=== PATIENT | female | born 1975 | race Caucasian/White ===

== ENCOUNTER 2016-10-13 22:39 | Emergency (ER) | payer OTHER ==
[~2016-10-13] VITALS: Ht 167.6 cm; Wt 64.9 kg
--- NOTE | 2016-10-13 23:01 | ED GI/GU/ABDOMINAL COMPLAINT ---
History of Present Illness General Chief Complaint: Female Urogenital Problems Stated Complaint: BACK PAIN, VAG BLEEDING Source: patient Exam Limitations: no limitations Vital Signs & Intake/Output Vital Signs & Intake/Output Vital Signs Date Time Temp Pulse Resp B/P B/P Pulse O2 O2 Flow FiO2 Mean Ox Delivery Rate 10/13 2249 96.8 93 20 124/86 99 Room Air Allergies Coded Allergies: No Known Allergies (10/13/16) Triage Note: TRIAGE: PT TO ER WITH FAMILY C/C LOW BACK PAIN AND DIFFUSE ABD PAIN. ONSET OF BACK PAIN YESTERDAY, ONSET OF STOMACH PAIN TODAY. PAINS ARE INTERMITTENT SINCE ONSET. -N/V/D. LNBM THIS MORNING. DENIES URINARY S/S. LMP ?08/26/2016, UNSURE OF STATUS. Triage Nurses Notes Reviewed? 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 EENTM: Reports: no symptoms. Respiratory: Reports: no symptoms. Cardiovascular: Reports: no symptoms. GI: Reports: no symptoms. Genitourinary: Reports: no symptoms. Musculoskeletal: Reports: no symptoms. Skin: Reports: no symptoms. Neurological/Psychological: Reports: no symptoms. Hematologic/Endocrine: Reports: no symptoms. Immunologic/Allergic: Reports: no symptoms. All Other Systems: Reviewed and Negative Progress Plan of Care: Orders Procedure Date/time Status Add-on Test (ER Only) 10/13 2346 Active URINALYSIS 10/13 2300 Complete LIPASE 10/14 2255 Active HUMAN BETA HCG SCREEN 10/14 2255 Active COMPREHENSIVE METABOLIC PANEL 10/14 2255 Active CBC WITHOUT DIFFERENTIAL 10/14 2255 Complete AMYLASE 10/14 2255 Active Laboratory Tests 10/13/16 2314: Urine Color STRAW, Urine Clarity HAZY H, Urine pH 6.5, Ur Specific [place] <= 1.005, Urine Protein TRACE H, Urine Ketones NEG, Urine Nitrite NEG, Urine Bilirubin NEG, Urine Urobilinogen 0.2, Ur Leukocyte Esterase SMALL H, Ur Microscopic SEDIMENT EXAMINED, Urine RBC 25-50 H, Urine WBC 3-5 H, Ur Epithelial Cells FEW, Urine Bacteria FEW H, Urine Hemoglobin LARGE H, Urine Glucose NEG 10/13/16 2311: Sodium Pending, Potassium Pending, Chloride Pending, Carbon Dioxide Pending, Anion Gap Pending, BUN Pending, Creatinine Pending, BUN/Creatinine Ratio Pending , Glucose Pending, Calcium Pending, Total Bilirubin Pending, AST Pending, ALT Pending, Alkaline Phosphatase Pending, Total Protein Pending, Albumin Pending, Globulin Pending, Albumin/Globulin Ratio Pending, Amylase Pending, Lipase Pending, Total Beta HCG Pending, CBC w Diff NO MAN DIFF REQ, RBC 4.87, MCV 84.4, MCH 28.0, RDW 13.1, MPV 8.5, Gran % 69.5, Lymphocytes % 22.8, Monocytes % 5.9, Eosinophils % 1.4, Basophils % 0.4, Absolute Granulocytes 7.1 H, Absolute Lymphocytes 2.3, Absolute Monocytes 0.6, Absolute Eosinophils 0.1, Absolute Basophils 0, PUBS MCHC 33.2 10/13/16 2301: Amylase Cancelled, Lipase Cancelled Departure Departure Condition: Stable Referrals: PATIENT HAS NO PRIMARY CARE DR Departure Forms: Customer Survey General Discharge Information
[2016-10-13 23:21] LABS: ABSOLUTE BASOPHIL COUNT 0 /CUMM (0.0-0.2); ABSOLUTE EOSINOPHIL COUNT 0.1 /CUMM (0.0-0.7); ABSOLUTE GRANULOCYTE CT 7.1 /CUMM (1.4-6.5); ABSOLUTE LYMPH COUNT 2.3 /CUMM (1.2-3.4); ABSOLUTE MONOCYTE COUNT 0.6 /CUMM (0.10-0.60); BASOPHIL % 0.4 % (0.0-2.0); EOSINOPHIL % 1.4 % (0-5); GRANULOCYTE % 69.5 % (42.2-75.2); HEMATOCRIT 41.1 % (37-47); MEAN CORPUSCULAR HGB CONC 33.2 G/DL (33.0-37.0); MEAN CORPUSCULAR VOLUME 84.4 FL (81.0-99.0); MEAN PLATELET VOLUME 8.5 FL (7.4-10.4); PLATELET COUNT 266 /CUMM (130-400); RBC DISTRIBUTION WIDTH 13.1 % (11.5-14.5); RED BLOOD CELL CT 4.87 /CUMM (4.20-5.40); WHITE BLOOD CELL COUNT 10.1 /CUMM (4.8-10.8)
--- NOTE | 2016-10-13 23:56 | ED GI/GU/ABDOMINAL COMPLAINT ---
History of Present Illness General Chief Complaint: Female Urogenital Problems Stated Complaint: BACK PAIN, VAG BLEEDING Source: patient Exam Limitations: no limitations Vital Signs & Intake/Output Vital Signs & Intake/Output Vital Signs Date Time Temp Pulse Resp B/P B/P Pulse O2 O2 Flow FiO2 Mean Ox Delivery Rate 10/14 0253 96.8 92 18 105/78 97 Room Air 10/13 2250 96.8 93 20 124/86 99 Room Air ED Intake and Output 10/14 0000 10/13 1200 Intake Total 0 Output Total Balance 0 Intake, Oral 0 Patient 143 lb Weight Weight Reported by Patient Measurement Method Allergies Coded Allergies: No Known Allergies (10/13/16) Triage Note: TRIAGE: PT TO ER WITH FAMILY C/C LOW BACK PAIN AND DIFFUSE ABD PAIN. ONSET OF BACK PAIN YESTERDAY, ONSET OF STOMACH PAIN TODAY. PAINS ARE INTERMITTENT SINCE ONSET. -N/V/D. LNBM THIS MORNING. DENIES URINARY S/S. LMP ?08/26/2016, UNSURE OF STATUS. Triage Nurses Notes Reviewed? yes ? U Is pt currently ? No Onset: Gradual Duration: constant Timing: recent history Severity Numbers: 5 Location: generalized abdomen Radiation: back Activities at Onset: none Prior Abdominal Problems: none HPI: Patient is a 41-year-old female who is a female who presents to emergency room stating that her last menstrual period was 6 weeks ago where she states that she has a 24-hour history of mild persistent vaginal bleeding with no passive tissue or blood clot passage and which she states that today she was working around the house where she noted generalized low back pain afterwards where she denies any mechanism injury. Patient does complain of mild generalized abdominal discomfort. Patient denies any fever chills chest pain shortness of breath cough. Patient does have positive for lightheaded sensation and dizziness. Denies any dysuria (ELIZABETH WHITE) Past History Travel History Traveled to [place] past 21 day No Medical History Any Pertinent Medical History? 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 No (ELIZABETH WHITE) Review of Systems Review of Systems Constitutional: Reports: no symptoms. EENTM: Reports: no symptoms. Respiratory: Reports: no symptoms. Cardiovascular: Reports: no symptoms. GI: Reports: see HPI, abdominal pain. Genitourinary: Reports: see HPI, discharge. Musculoskeletal: Reports: see HPI, back pain. Skin: Reports: no symptoms. Neurological/Psychological: Reports: no symptoms. Hematologic/Endocrine: Reports: no symptoms. Immunologic/Allergic: Reports: no symptoms. All Other Systems: Reviewed and Negative (ELIZABETH WHITE) Physical Exam Physical Exam General Appearance: no apparent distress, alert Gastrointestinal: normal bowel sounds, soft, MILD GENERALIZED POINT TENDERNESS NOTED Comments: Well-developed well-nourished person in no acute distress HEENT: Normal EENT exam, Neck: Supple, no lymphadenopathy, normal range of motion without pain or tenderness Back: Generalized point tenderness noted Cardiovascular: Regular rate and rhythms no murmurs rubs or gallops, normal JVP Respiratory: Chest nontender. No respiratory distress.breath sounds clear to auscultation bilaterally Extremity: No edema, no calf tenderness to palpation, normal and equal pulses. Neuro: Alert oriented x3, motor sensory normal, -noted mild vaginal bleeding cervix noted to BE open with one digit of in diameter Nontender Skin: No appreciable rash on exposed skin, skin is warm and dry. Psych: Mood and affect is normal, memory and judgment is normal. Core Measures ACS in differential dx? No Severe Sepsis Present: No Septic Shock Present: No (ELIZABETH WHITE) Progress Differential Diagnosis: appendicitis, biliary colic, bowel obstruction, colon cancer, cholecystitis, diverticulitis, ectopic , endometritis, esophageal varices, gastritis, hepatitis, hernia, hemorrhoids, ischemic bowel, inflamm bowel dis, intrauterine , kidney stone, Sheila-Preeti tear, ovarian cyst, ovarian torsion, pancreatitis, PID/cervicitis, peptic ulcer, PUD/ GERD, perforated viscous, SBO, threatened AB, UTI/pyelo Plan of Care: Orders Procedure Date/time Status Add-on Test (ER Only) 10/14 0011 Active Add-on Test (ER Only) 10/14 0002 Active PARTIAL THROMBOPLASTIN TIME 10/14 0002 Complete PROTHROMBIN TIME 10/14 0002 Complete TYPE & SCREEN (NOT X-MATCH) 10/14 0002 Complete Add-on Test (ER Only) 10/14 0001 Active HUMAN BETA HCG TITRE 10/13 2310 Complete URINALYSIS 10/13 2300 Complete LIPASE 10/14 2255 Complete HUMAN BETA HCG SCREEN 10/14 2255 Complete COMPREHENSIVE METABOLIC PANEL 10/14 2255 Complete CBC WITHOUT DIFFERENTIAL 10/14 2255 Complete AMYLASE 10/14 2255 Complete Laboratory Tests 10/13/164: Urine Color STRAW, Urine Clarity HAZY H, Urine pH 6.5, Ur Specific [place] <= 1.005, Urine Protein TRACE H, Urine Ketones NEG, Urine Nitrite NEG, Urine Bilirubin NEG, Urine Urobilinogen 0.2, Ur Leukocyte Esterase SMALL H, Ur Microscopic SEDIMENT EXAMINED, Urine RBC 25-50 H, Urine WBC 3-5 H, Ur Epithelial Cells FEW, Urine Bacteria FEW H, Urine Hemoglobin LARGE H, Urine Glucose NEG 10/13/162310: Anion Gap 14, Estimated GFR > 60, BUN/Creatinine Ratio 12.0, Glucose 96, Calcium 9.4, Total Bilirubin 0.4, AST 19, ALT 33, Alkaline Phosphatase 57, Total Protein 7.4, Albumin 4.3, Globulin 3.1, Albumin/Globulin Ratio 1.4, Amylase 57, Lipase 200, Beta HCG, Quant 198.7, Total Beta HCG POSITIVE, PT 12.6 H, INR 1.20 H, APTT 29, CBC w Diff NO MAN DIFF REQ, RBC 4.87, MCV 84.4, MCH 28.0, RDW 13.1, MPV 8.5, Gran % 69.5, Lymphocytes % 22.8, Monocytes % 5.9, Eosinophils % 1.4, Basophils % 0.4, Absolute Granulocytes 7.1 H, Absolute Lymphocytes 2.3, Absolute Monocytes 0.6, Absolute Eosinophils 0.1, Absolute Basophils 0, PUBS MCHC 33.2 10/13/162300: Amylase Cancelled, Lipase Cancelled Patient currently is resting comfortable at bedside however patient is noted to have possible , beta Quant was 198. Cervix was noted to be open in which patient has mild vaginal bleeding. COPY LATHE OPERATOR will be paged10/14/2016 12:55:55 AM Patient's COPY LATHE OPERATOR is Dr.ORLITO SEYMOUR FROM [facility] 10/14/2016 1:29:24 AM COPY LATHE OPERATOR was paged discussed handoff with Dr. Maldonado (ELIZABETH WHITE) Initial ED EKG: none (ELIZABETH WHITE) Departure Departure Disposition: STILL A PATIENT Condition: Stable Clinical Impression Primary Impression: Threatened Referrals: MY BONILLA,KHURRAM Marshall (PCP/Family) Departure Forms: Customer Survey General Discharge Information (ELIZABETH WHITE) PA/REMEDIAL MASSEUR Co-Sign Statement Statement: ED Attending supervision documentation- [x] I saw and evaluated the patient. I have also reviewed all the pertinent lab results and diagnostic results. I agree with the findings and the plan of care as documented in the PA's/REMEDIAL MASSEUR's documentation. 10/14/16, 2:01am... discussed with dr. beaver (rough and trueing machine operator)... pt with low hcg, likely miscarrying... pt safe for discharge... will be seen this am by dr. beaver. [] I have reviewed the ED Record and agree with the PA's/REMEDIAL MASSEUR's documentation. [] Additions or exceptions (if any) to the PAs/REMEDIAL MASSEUR's note and plan are summarized below: [] (JU BONILLA,GLENIS Marshall) ED Attending supervision documentation- [x] I saw and evaluated the patient. I have also reviewed all the pertinent lab results and diagnostic results. I agree with the findings and the plan of care as documented in the PA's/REMEDIAL MASSEUR's documentation. 10/14/16, 2:01am... discussed with dr. beaver (rough and trueing machine operator)... pt with low hcg, likely miscarrying... pt safe for discharge... can be seen this am by dr. beaver. [] I have reviewed the ED Record and agree with the PA's/REMEDIAL MASSEUR's documentation. [] Additions or exceptions (if any) to the PAs/REMEDIAL MASSEUR's note and plan are summarized below: [] (JU BONILLA,GLENIS Marshall)
[2016-10-14 00:36] LABS: PT 12.6 SEC (9.4-12.5); PTT 29 SEC (25-37)
[2016-10-14 02:53] VITALS: BP 105/78
== END 2016-10-14 03:18 ==
LOC: ERH 22:39
PROVIDERS: Pediatrics; Physician Assistant
DX: O20.0 Threatened abortion (principal)
CPT/HCPCS: 81001; 96360; 96361